=== PATIENT | female | born 1940 ===

== ENCOUNTER → 2016-12-04 | Outpatient (REF) ==
[2016-12-04 18:17] LABS: ADJUSTED CALCIUM 8.7 mg/dL (8.4-10.2); ALBUMIN 3.9 gm/dL (3.5-5.0); BILIRUBIN,TOTAL 0.9 mg/dL (0.0-1.0); CALCIUM 8.6 mg/dL (8.4-10.2); CREATININE, serum 0.65 mg/dL (0.52-1.25); POTASSIUM 3.7 mmol/L (3.4-5.0); TOTAL PROTEIN 7.3 gm/dL (6.4-8.2)
== END ==
LOC: ZMSC 18:07
PROVIDERS: Physician Assistant
DX: Z01.89 Encounter for other specified special examinations (principal)